=== PATIENT | female | born 1985 | race Caucasian/White ===

== ENCOUNTER 2017-01-02 17:05 | Emergency (ER) | payer OTHER ==
[~2017-01-02] VITALS: Ht 165.1 cm; Wt 100.0 kg
[~2017-01-02 17:05] MED LIST: VIST50CA PO
[2017-01-02 17:07] VITALS: BP 132/70; PULSE 92; RESP 16; TEMP 97.9; O2SAT 96
--- NOTE | 2017-01-02 17:52 | PD ---
HPI Chief Complaint: Injury Time Seen by Provider: 17:52 Travel History International Travel<30 days: No Contact w/Intl Traveler<30days: No Traveled to known affect area: No History of Present Illness HPI 31-year-old female presents emergency Department with complaint of right ankle pain since Friday after twisting her ankle while working out. She has tried icing and elevating it and compressing it with an Lg bandage with no relief of symptoms. She has been ambulatory on the affected extremity with increasing amount of pain. Denies paresthesias, loss of sensation to the affected extremity. Reports decreased range of motion and secondary to pain and swelling. Tried taking Tylenol with some relief of pain. No known allergies. History of anemia. No other modifying factors or associated signs and symptoms. PFSH Past Medical History Anemia: Yes Anxiety: Yes : 0 Past Surgical History Genitourinary Surgery: Yes (BLADDER SCOPE WHEN A CHILD) Other Surgery: Yes (SCOPE OF BLADDER AT AGE 11) Social History Alcohol Use: Yes (2-4 DRINKS PER MONTH) Tobacco Use: Yes (1/2 PACK A DAY) Substance Use: No Allergies-Medications (Allergen,Severity, Reaction): Coded Allergies: No Known Allergies (Verified , 01/02/17) Reported Meds & Prescriptions Reported Meds & Active Scripts Active No Active Prescriptions or Reported Medications Review of Systems Except as stated in HPI: all other systems reviewed are Neg Physical Exam Narrative GENERAL: Well-nourished, well-developed female patient, in no acute distress SKIN: Warm and dry. HEAD: Atraumatic. Normocephalic. EYES: Pupils equal and round. No scleral icterus. No injection or drainage. ENT: Mucosa pink and moist. Airway patent. NECK: Trachea midline. CARDIOVASCULAR: Regular rate. RESPIRATORY: No accessory muscle use. GASTROINTESTINAL: Rounded. MUSCULOSKELETAL: Right ankle with point tenderness and edema to the lateral malleolar zone; no obvious deformity; without erythema, ecchymosis; with range of motion. Right lower extremity supple and non-tense with 2+ pedal pulses and sensory intact. No obvious deformities. No clubbing. No cyanosis. No edema. NEUROLOGICAL: Awake and alert. Oriented 3. No obvious cranial nerve deficits. Motor grossly within normal limits. Normal speech. PSYCHIATRIC: Appropriate mood and affect; insight and judgment normal. Data Data Last Documented VS Vital Signs Date Time Temp Pulse Resp B/P Pulse Ox O2 Delivery O2 Flow Rate FiO2 01/02/17 17:07 97.9 92 16 132/70 96 Room Air Orders Ibuprofen (Motrin) (01/02/17 18:00) Ankle, Complete (Dov0qst) (01/02/17 17:52) [facility] Medical Decision Making Medical Screen Exam Complete: Yes Emergency Medical Condition: Yes Medical Record Reviewed: Yes Differential Diagnosis Ankle sprain, ankle fracture, ankle dislocation Narrative Course 31-year-old female with right ankle injury. Right lower extremity is supple and non-tense with 2+ pedal pulse and sensory intact. Ibuprofen ordered. Right ankle x-ray ordered. 1828: Right ankle x-ray concludes No acute abnormality seen. Calcaneal spurs are present. Discussed calcaneal spurs with patient. Ankle stirrup splint and Lg bandage ordered. Crutches provided for support. Ibuprofen prescribed for home. Patient is medically cleared and stable for discharge. Discussed reasons to return to the emergency department. Instructed patient to follow up with primary care provider. Patient agrees with treatment plan. The patients vital signs are stable and the patient is stable for outpatient follow-up and treatment. Patient discharged home, stable and in no acute distress. Diagnosis Primary Impression: Right ankle sprain Qualified Code: S93.401A - Sprain of right ankle, unspecified ligament, initial encounter Referrals: Primary Care Physician Patient Instructions: Crutch Instructions (ED), General Instructions Departure Forms: Tests/Procedures, Work Release Enter return to work date: Jan 06, 2017 Additional Instructions: Ibuprofen or Tylenol as instructed and as needed for pain and inflammation Rest, ice, compress, and elevate extremity to decrease pain and inflammation Ankle Brace for support Crutches for support Avoid aggravating activity; increase activity as tolerated Follow-up with primary care provider Return to the emergency department immediately with worsening symptoms Med/Other Pt SpecificInfo: Prescription(s) given Scripts Ibuprofen 800 Mg Tuc852 Mg PO Q6HR PRN (PAIN) #30 TAB Ref 0 Prov:Ysabel Mejia 01/02/17 Disposition: 01 DISCHARGE HOME Condition: Stable Ysabel Mejia Jan 02, 2017 17:52
[2017-01-02] MEDS ORDERED: IBUPROFEN 800 MG TAB PO ONE (18:00)
--- NOTE | 2017-01-02 18:23 | RADRPT ---
EXAM DATE/TIME: 01/02/2017 18:09 [facility] COMPARISON: No previous studies available for comparison. INDICATIONS : Right ankle pain from fall. MEDICAL HISTORY : Prior ankle sprain. SURGICAL HISTORY : None. ENCOUNTER: Initial ACUITY: 3 days PAIN SCORE: 4/10 LOCATION: lateral side of ankle. FINDINGS: Three view exam was performed of the right ankle. The bony structures are in normal alignment. No e vidence of fracture, dislocation, or soft tissue swelling. The ankle mortise is intact. Calcaneal s purs are seen at the plantar aponeurosis attachment site and to a lesser degree the Achilles attachme nt site at the posterior calcaneus. No radiopaque foreign bodies are seen. Bony mineralization is no rmal. CONCLUSION: No acute abnormality seen. Calcaneal spurs are present. Hank Archer MD on January 02, 2017 at 18:20 Board Certified Radiologist. This report was verified electronically.
[2017-01-02] MEDS ORDERED: IBUP800T23 PO (18:29)
== END 2017-01-02 19:34 | disposition home or self-care (01) ==
LOC: NEPB 17:05
DX: S93.401A Sprain of unspecified ligament of right ankle, initial encounter (principal); X50.1XXA Overexertion from prolonged static or awkward postures, initial encounter; Y93.B9 Activity, other involving muscle strengthening exercises
CPT/HCPCS: 73610; 99283; E0113; L1906

== ENCOUNTER 2017-02-27 08:24 | Emergency (ER) | payer OTHER ==
[~2017-02-27] VITALS: Ht 165.1 cm; Wt 100.0 kg
[~2017-02-27 08:24] MED LIST changes: +IBUP800T23 PO; -VIST50CA PO
[2017-02-27 08:26] VITALS: BP 198/92; PULSE 70; RESP 20; TEMP 98.7; O2SAT 98
[2017-02-27 08:48] VITALS: BP 148/85; PULSE 67
--- NOTE | 2017-02-27 08:52 | PD ---
HPI . right ear possible fb Chief Complaint: ENT Complaint Time Seen by Provider: 08:52 Travel History International Travel<30 days: No Contact w/Intl Traveler<30days: No Traveled to known affect area: No History of Present Illness HPI 31-year-old female here with complaints of possible foreign body to her right ear. Patient says that for the past several days she's felt as if something was in her ear. She has been using uqab-thq-rxdheah eardrops trying to flush it out, without any success. She also bought what she is describing as an ear curette and tried poking and prodding to remove the foreign body. She is now complaining of pain in the right ear canal. She has difficulty hearing and the fullness is causing a headache. She denies any fever or chills. PFSH Past Medical History Anemia: Yes Anxiety: Yes Cardiovascular Problems: Yes (htn) : 0 Past Surgical History Genitourinary Surgery: Yes (BLADDER SCOPE WHEN A CHILD) Other Surgery: Yes (SCOPE OF BLADDER AT AGE 11) Social History Alcohol Use: Yes (2-4 DRINKS PER MONTH) Tobacco Use: Yes (1/2 PACK A DAY) Substance Use: No Allergies-Medications (Allergen,Severity, Reaction): Coded Allergies: No Known Allergies (Verified , 02/27/17) Reported Meds & Prescriptions Reported Meds & Active Scripts Active Ibuprofen 800 Mg Tab 800 Mg PO TID Ciprodex Otic Drops (Ciprofloxacin-Dexamethasone Otic Drops) 0.3-0.1% Susp 4 Drop RIGHT EAR BID for 7 days Ibuprofen 800 Mg Tab 800 Mg PO Q6HR PRN Review of Systems General / Constitutional: No: Fever Eyes: No: Visual changes HENT: Positive: Earache, No: Headaches Cardiovascular: No: Chest Pain or Discomfort Respiratory: No: Shortness of Breath Gastrointestinal: No: Abdominal Pain Genitourinary: No: Dysuria Musculoskeletal: No: Pain Skin: No Rash Neurologic: No: Weakness Psychiatric: No: Depression Endocrine: No: Polydipsia Hematologic/Lymphatic: No: Easy Bruising Physical Exam Narrative GENERAL: AAO x 3, no acute distress, Well-nourished, well-developed patient. SKIN: Warm and dry. No visible rashes or bruising. HEAD: Normocephalic and atraumatic. EYES: No scleral icterus. No injection or drainage. ENT: No nasal drainage noted. Mucous membranes pink. Airway patent. Right ear with cerumen impaction. There is also an area of ecchymosis likely caused from the curette. There is a small pustule. There is increased amounts of erythema in the external ear canal. Pain with manipulation of the tragus. TM cannot be visualized. NECK: Supple, trachea midline. No JVD. no lymphadenopathy CARDIOVASCULAR: Regular rate and rhythm without murmurs, gallops, or rubs. RESPIRATORY: Breath sounds equal bilaterally. No accessory muscle use. No rhonchi or rales. GASTROINTESTINAL: normal visual inspection. EXTREMITIES: No cyanosis or edema. BACK: Nontender without obvious deformity. No CVA tenderness. PSYCH: AAO x 3, normal affect. Data Data Last Documented VS Vital Signs Date Time Temp Pulse Resp B/P Pulse Ox O2 Delivery O2 Flow Rate FiO2 02/27/17 08:48 67 148/85 02/27/17 08:26 98.7 20 98 Room Air Orders Ear Irrigation (02/27/17 08:56) [facility] Medical Decision Making Medical Screen Exam Complete: Yes Emergency Medical Condition: Yes Medical Record Reviewed: Yes Differential Diagnosis right cerumen impaction, OE, less likely fb, less likely OM Narrative Course 31-year-old female here with complaints of possible foreign body to her right ear. Patient says that for the past several days she's felt as if something was in her ear. She has been using eujg-njx-rbzuhtf eardrops trying to flush it out, without any success. She also bought what she is describing as an ear curette and tried poking and prodding to remove the foreign body. She's now complaining of pain in the right ear canal. She has difficulty hearing and the fullness is causing a headache. She denies any fever or chills. Patient seen and examined. She does have a right sided cerumen impaction. She also has some erythema and edema as well as a pustule, that I believe she created. The wax appears to be semi-soft. We will try an ear irrigation, however I've explained to the patient if we are unsuccessful that she will ultimately need to see ear nose and throat. (reduce risk of TM rupture) Ear irrigation attempted and not much removed. There is no way to remove with curette or tools in the ED. Discussed with patient that she will need to see ENT as her usage of qtips and other products have impacted the wax to where I cannot removed in the ED. She is tearful and asking me to have another attempt. Her ear canal is erythematous, and lightly bleeding. I explained that I am not going to force removal as the chance of rupture of ear drum exists. She will have to see ENT to have this large impaction removed. I advised her that she will need to contact the insurance company to find out which provider will accept her insurance. Patient verbalized understanding of instructions, questions were answered, and thanked me for their care. I advised them if their condition worsens, please return to the nearest emergency room for further care. Diagnosis Primary Impression: Right ear impacted cerumen Additional Impression: Otitis externa of right ear Qualified Code: H60.501 - Acute otitis externa of right ear, unspecified type Patient Instructions: Cerumen Impaction (ED), General Instructions Additional Instructions: Please return to emergency department if your symptoms return or worsen. Follow up with your primary care provider. You will need to see an Ear, nose and throat specialist. Please call your insurance to see what providers will accept your plan. You can try over the counter Debrox to help loosen your earwax. Do not use any q tips or stick any objects into your ear. The ear drops I provided will treat the infection created at the entrance of the ear canal. It will not help with the wax. Scripts Ibuprofen 800 Mg [id number] Mg PO TID #21 TAB Prov:Kristal Malhotra MD 02/27/17 Ciprofloxacin-Dexamethasone Otic Drops (Ciprodex Otic Drops)0.3-0.1% Susp4 Drop RIGHT EAR BID #1 BOTTLE for 7 days Prov:Kristal Malhotra MD 02/27/17 Disposition: 01 DISCHARGE HOME Condition: Stable Deanne Galdamez Feb 27, 2017 08:52
[2017-02-27] MEDS ORDERED: IBUP800T23 PO (09:12)
[2017-02-27] MEDS ORDERED: CIPR0.3S RIGHT EAR (09:12)
== END 2017-02-27 09:27 | disposition home or self-care (01) ==
LOC: NEPK 08:24
DX: H61.21 Impacted cerumen, right ear (principal); R51 Headache; F17.200 Nicotine dependence, unspecified, uncomplicated
CPT/HCPCS: 99282

== ENCOUNTER 2017-06-11 14:15 | Emergency (ER) | payer OTHER ==
[~2017-06-11 14:15] MED LIST changes: +CIPR0.3S RIGHT EAR
[2017-06-11 14:16] VITALS: BP 172/92; PULSE 64; RESP 24; TEMP 98.2; O2SAT 99
== END 2017-06-11 14:46 | disposition left against medical advice (07) ==
LOC: NED 14:15
DX: F41.9 Anxiety disorder, unspecified (principal); Z53.21 Procedure and treatment not carried out due to patient leaving prior to being seen by health care provider
CPT/HCPCS: 99281

== ENCOUNTER 2017-10-28 15:33 | Emergency (ER) | payer OTHER ==
[~2017-10-28 15:33] MED LIST changes: +IBUP1TAB7 PO; -IBUP800T23 PO
[2017-10-28 15:36] VITALS: BP 154/78; PULSE 70; RESP 16; TEMP 98.3; O2SAT 99
--- NOTE | 2017-10-28 17:04 | PD ---
HPI Chief Complaint: ENT Complaint Time Seen by Provider: 16:54 Travel History International Travel<30 days: No Contact w/Intl Traveler<30days: No Traveled to known affect area: No History of Present Illness HPI 32-year-old female presents to the ED for evaluation of 5 day history of sinus congestion, runny nose, cough, sore throat. Symptoms onset gradually. Improved by taking DayQuil and NyQuil. Patient denies fever, chills, nausea, vomiting. She endorses history of environmental allergies. She endorses contacts at work. She endorses history of strep throat, states these symptoms are similar. She is current smoker. She did not receive this years flu vaccine. PFSH Past Medical History Anemia: Yes Anxiety: Yes Cardiovascular Problems: Yes (htn) Diminished Hearing: No ?: Not LMP: now : 0 Past Surgical History Genitourinary Surgery: Yes (BLADDER SCOPE WHEN A CHILD) Other Surgery: Yes (SCOPE OF BLADDER AT AGE 11) Social History Alcohol Use: Yes (2-4 DRINKS PER MONTH) Tobacco Use: Yes (1/2 PACK A DAY) Substance Use: Yes (marijuana) Allergies-Medications (Allergen,Severity, Reaction): Coded Allergies: No Known Allergies (Verified , 02/27/17) Reported Meds & Prescriptions Reported Meds & Active Scripts Active Magic Mouthwash Adult Liq (Multi-Ingredient Mouthwash/Gargle) 120 Ml Susp 5 Ml SWISH-SWAL ACHS Each 5mL contains: Nystatin 200,000units, Diphenhydramine 4.25mg, Viscous Lidocaine 10mg, Andres syrup 0.8 mL Ibuprofen 800 Mg Tab 800 Mg PO TID Ciprodex Otic Drops (Ciprofloxacin-Dexamethasone Otic Drops) 0.3-0.1% Susp 4 Drop RIGHT EAR BID for 7 days Ibuprofen 800 Mg Tab 800 Mg PO Q6HR PRN Review of Systems Except as stated in HPI: all other systems reviewed are Neg Physical Exam Narrative GENERAL: Well-nourished, well-developed white female in no acute distress. Talking on the cell phone during the course of evaluation. SKIN: Warm and dry. HEAD: Normocephalic. Atraumatic. EYES: No scleral icterus. No injection or drainage. PERRLA. EOMI. ENT: Pearly mireles tympanic membranes bilaterally. Bilateral serous effusions. Nasal mucosa is moist. Oropharynx without edema or exudate. Posterior oropharynx mildly erythematous. Tonsils 1+ bilaterally. Uvula midline. Airway patent. NECK: Supple, trachea midline. No JVD or lymphadenopathy. CARDIOVASCULAR: Regular rate and rhythm without murmurs, gallops, or rubs. RESPIRATORY: Breath sounds clear and equal bilaterally. No accessory muscle use. GASTROINTESTINAL: Abdomen soft, non-tender, nondistended. + Bowel sounds MUSCULOSKELETAL: No cyanosis, or edema. BACK: Nontender without obvious deformity. No CVA tenderness. Data Data Last Documented VS Vital Signs Date Time Temp Pulse Resp B/P (MAP) Pulse Ox O2 Delivery O2 Flow Rate FiO2 10/28/17 17:44 10/28/17 15:36 98.3 70 16 99 Orders Orders Group A Rapid Strep Screen (10/28/17 16:45) Strep Culture (Group A) (10/28/17 17:00) Ed Discharge Order (10/28/17 17:37) MDM Medical Decision Making Medical Screen Exam Complete: Yes Emergency Medical Condition: Yes Differential Diagnosis Viral syndrome versus postnasal drip versus pharyngitis versus strep pharyngitis versus other Narrative Course 32-year-old female presents to the ED for evaluation of 5 day history of sinus congestion, runny nose, cough, sore throat. Patient denies fever, chills, nausea, vomiting. She is current smoker. She did not receive this years flu vaccine. Vitals reviewed. Physical exam reveals bilateral serous your effusions without signs of infection and mildly erythematous posterior oropharynx. Tonsils 1+ bilaterally. Otherwise unremarkable. Rapid strep swab negative. This is viral syndrome and pharyngitis. Patient's prescribed Magic mouthwash, instructed to continue with [id number] symptomatic treatment. She is stable and discharged home. Diagnosis Primary Impression: Viral syndrome Additional Impression: Pharyngitis Qualified Codes: J02.9 - Acute pharyngitis, unspecified Referrals: Ear / Nose / Throat Specialist Patient Instructions: General Instructions, Pharyngitis (ED), Viral Syndrome ( ED) Additional Instructions: Rest, hydrate. Push fluids such as sports drinks, Pedialyte, popsicles, clear broth. Continue with symptomatic treatment. Alternating Motrin and Tylenol every 4-6 hours as needed for continued fever. Increase handwashing frequently to avoid the spread of the virus to other family members and the community. Follow-up with the primary care provider this week. Return to the ED for any urgent or emergent medical condition. Med/Other Pt SpecificInfo: Prescription(s) given Scripts Xpukwnlh-Hvfpycubewlyoxm-Fiivypbjh Liq (Magic Mouthwash Adult Liq) 120 Ml Susp 5 ML SWISH-SWAL ACHS for Sore Throat, #120 ML 0 Refills Each 5mL contains: Nystatin 200,000units, Diphenhydramine 4.25mg, Viscous Lidocaine 10mg, Andres syrup 0.8 mL Prov: Charlene Colorado MD 10/28/17 Disposition: 01 DISCHARGE HOME Condition: Stable Meg Reynoso Oct 28, 2017 17:03
[2017-10-28] MEDS ORDERED: MAGICADU2 SWISH-SWAL (17:37)
== END 2017-10-28 17:45 | disposition home or self-care (01) ==
LOC: NEPK 15:33
DX: B34.9 Viral infection, unspecified (principal); D64.9 Anemia, unspecified; F41.9 Anxiety disorder, unspecified; I10 Essential (primary) hypertension; F17.200 Nicotine dependence, unspecified, uncomplicated
CPT/HCPCS: 87081; 87880; 99283